=== PATIENT | female | born 1990 | race African-American/Black ===

== ENCOUNTER 2017-12-01 14:44 | Emergency (ER) | payer MEDICAID ==
[2017-12-01 15:47] VITALS: BP 110/65
--- NOTE | 2017-12-01 16:06 | ER Document Report ---
HPI - HPI Pain Level: 4 Notes: Patient is a 27-year-old female no significant past medical history presents to the ED complaining of nasal congestion/discharge, irritated throat, fevers, body aches, dry nonproductive cough 5-7 days. Patient states that overall her symptoms seem to be improving, but wanted checked out as multiple people in her household have a similar illness. Patient is otherwise eating and drinking without difficulties. She is ambulatory without any dyspnea on exertion or worsening symptoms. She is urinating normally and having normal bowel movements. Tylenol Motrin has been helping. Denies any current headache, current fever, neck pain, chest pain, palpitations, syncope, shortness of breath , wheeze, dyspnea, abdominal pain, nausea/vomiting/diarrhea, urinary retention, dysuria, hematuria, or rash. - ROS Systems Reviewed and Negative: Yes All other systems reviewed and negative Past Medical History - Social History Smoking Status: Never Smoker Family History: Reviewed & Not Pertinent Vertical Provider Document - CONSTITUTIONAL Agree With Documented VS: Yes Notes: PHYSICAL EXAMINATION: GENERAL: Well-appearing, well-nourished and in no acute distress. A&Ox4. Answers questions appropriately. Moves comfortably w/o notable distress HEAD: Atraumatic, normocephalic. EYES: Pupils equal round and reactive to light, extraocular movements intact, sclera anicteric, conjunctiva are normal. ENT: EAC clear b/l. TM's intact b/l without erythema, fluid, or perforation. Nares patent and with clear discharge. oropharynx mild erythema without exudates. no tonsilar hypertrophy without erythema or exudate. No palatine shift. Uvula midline. No tongue protrusion. No drooling, hoarseness, or airway compromise. Moist mucous membranes. No sinus tenderness. NECK: Normal range of motion, supple without lymphadenopathy. No rigidity/ meningismus. LUNGS: Breath sounds clear to auscultation bilaterally and equal. No wheezes rales or rhonchi. No retractions HEART: Regular rate and rhythm without murmurs, rubs, gallops. ABDOMEN: Soft, nontender, nondistended abdomen. No guarding, no rebound. No masses appreciated. Normal bowel sounds present. No CVA tenderness bilaterally. No hepatosplenomegaly. NEUROLOGICAL: Normal speech, normal gait. Normal sensory, motor exams PSYCH: Normal mood, normal affect. SKIN: Warm, Dry, normal turgor, no rashes or lesions noted. - INFECTION CONTROL TRAVEL OUTSIDE OF THE [place] IN LAST 30 DAYS: No - RESPIRATORY O2 Sat by Pulse Oximetry: 98 Course - Re-evaluation Re-evalutation: 12/01/17 16:05 Patient is an afebrile, well-hydrated, 27-year-old female who presents ED with acute URI, suspect viral. Vitals are stable. PE is otherwise unremarkable. No other labs or imaging warranted at this time based on H&P. Low suspicion for any meningitis, sepsis, peritonsillar/pharyngeal abscess, respiratory compromise, Riki's, severe dehydration, or other emergent systemic condition at this time. Patient is aware this condition can change from initial presentation and she needs to monitor symptoms closely. Conservative measures otherwise for symptoms. Recheck with your PCM in 3-5 days. Return to the ED with any worsening/concerning symptoms otherwise as reviewed in discharge. Patient is in agreement. - Vital Signs Vital signs: Temp Pulse Resp BP Pulse Ox 97.7 F 84 18 110/65 98 12/01/17 15:33 12/01/17 15:33 12/01/17 15:33 12/01/17 15:33 12/01/17 15:33 Discharge - Discharge Clinical Impression: Acute URI Condition: Stable Disposition: HOME, SELF-CARE Instructions: Upper Respiratory Illness ([facility]) Additional Instructions: Maintain adequate fluid intake Take meds as directed tylenol/ibuprofen as needed over the counter cold medication as needed for symptoms Humidified air may help Wash your hands regularly Wear a mask when coughing F/u: with your PCM in 3-5 days for a recheck Return to the ED with any fever, worsening pain, chest pain, palpitations, syncope, worsening VIEIRA, neck pain/stiffness, shortness of breath, wheezing, drooling, trouble swallowing/breathing, abdominal pain, n/v/d, rash, or worsening/concerning symptoms otherwise. Forms: Return to Work Referrals: [facility] [Provider Group] - Follow up as needed [facility] [Provider Group] - Follow up as needed
== END 2017-12-01 17:12 | disposition home or self-care (01) ==
LOC: ER 14:44
DX: J06.9 Acute upper respiratory infection, unspecified (principal); R09.81 Nasal congestion; R50.9 Fever, unspecified; M79.1 Myalgia; R05 Cough
CPT/HCPCS: 99283

== ENCOUNTER 2017-12-27 12:17 | Emergency (ER) | payer MEDICAID ==
--- NOTE | 2017-12-27 13:21 | ER Document Report ---
ED Extremity Problem, Lower - General Chief Complaint: Laceration Stated Complaint: LACERATION LEFT Time Seen by Provider: 12/27/17 12:56 Mode of Arrival: Ambulatory Information source: Patient Notes: 27-year-old female presented to ED for complaint of laceration to her left leg from broken glass on Wednesday. She states that the area is not closing up and is staying gap. She states she was not able to come to the emergency room for and she cut her leg but came today to see if he could get sutured. Patient was instructed that sutures could not be inserted this late after a laceration for a healing wound. TRAVEL OUTSIDE OF THE [place] IN LAST 30 DAYS: No - HPI Patient complains to provider of: Injury - Laceration on Wednesday, Pain Location: Leg Occurred: Other - Wednesday Where: Home, Outdoors Onset/Duration: Persistent Quality of pain: Sharp Severity: Mild Pain Level: 2 Context: Laceration - Left leg Recent injury: Yes Associated symptoms: Other - Laceration Exacerbated by: Movement, Walking Relieved by: Nothing - Related Data Allergies/Adverse Reactions: No Known Allergies Allergy (Verified 12/27/17 13:20) Past Medical History - General Information source: Patient - Social History Smoking Status: Never Smoker Cigarette use (# per day): No Chew tobacco use (# tins/day): No Smoking Education Provided: No Frequency of alcohol use: Social Drug Abuse: None Occupation: Computer Console Operator at [employer] with: Spouse/Significant other Family History: Reviewed & Not Pertinent Patient has suicidal ideation: No Patient has homicidal ideation: No - Past Medical History Cardiac Medical History: Reports: None Pulmonary Medical History: Reports: None EENT Medical History: Reports: None Neurological Medical History: Reports: None Endocrine Medical History: Reports: None Renal/ Medical History: Reports: None Malignancy Medical History: Reports: None GI Medical History: Reports: None Musculoskeltal Medical History: Reports None Skin Medical History: Reports None Psychiatric Medical History: Reports: None Traumatic Medical History: Reports: None Infectious Medical History: Reports: None Surgical Hx: Negative Past Surgical History: Reports: None - Immunizations Immunizations up to date: Yes Hx Diphtheria, Pertussis, Tetanus Vaccination: Yes - She states 2017 Review of Systems - Review of Systems Notes: Constitutional: [PRESENT: as per HPI. ABSENT: chills, fever(s), headache(s), weight gain, weight loss] Eyes: [ABSENT: visual disturbances] Ears: [ABSENT: hearing changes] Cardiovascular: [ABSENT: chest pain, dyspnea on exertion, edema, orthropnea, palpitations] Respiratory: [ABSENT: cough, hemoptysis] Gastrointestinal: [ABSENT: abdominal pain, constipation, diarrhea, hematemesis, hematochezia, nausea, vomiting] Genitourinary: [ABSENT: dysuria, hematuria] Musculoskeletal: [ABSENT: joint swelling] Integumentary: Laceration left lower leg Neurological: [ABSENT: abnormal gait, abnormal speech, confusion, dizziness, focal weakness, syncope] Psychiatric: [ABSENT: anxiety, depression, homicidal ideation, suicidal ideation ] Endocrine: [ABSENT: cold intolerance, heat intolerance, menstrual abnormalities , polydipsia, polyuria] Hematologic/Lymphatic: [ABSENT: easy bleeding, easy bruising, lymphadenopathy] Physical Exam - Vital signs Vitals: Temp Pulse Resp BP Pulse Ox 98.7 F 72 15 114/68 100 12/27/17 12:33 12/27/17 12:33 12/27/17 12:33 12/27/17 12:33 12/27/17 12:33 - Notes Notes: PHYSICAL EXAMINATION: GENERAL: Well-appearing, well-nourished and in no acute distress. HEAD: Atraumatic, normocephalic. EYES: Pupils equal round and reactive to light, extraocular movements intact, conjunctiva are normal. ENT: Nares patent, oropharynx clear without exudates. Moist mucous membranes. NECK: Normal range of motion, supple without lymphadenopathy LUNGS: Breath sounds clear to auscultation bilaterally and equal. No wheezes rales or rhonchi. HEART: Regular rate and rhythm without murmurs ABDOMEN: Soft, nontender, nondistended abdomen. No guarding, no rebound. No masses appreciated. Female : deferred Musculoskeletal: Normal range of motion, no pitting or edema. No cyanosis. NEUROLOGICAL: Cranial nerves grossly intact. Normal speech, normal gait. Normal sensory, motor exams PSYCH: Normal mood, normal affect. SKIN: Warm, Dry, normal turgor, no rashes or lesions noted. 3 cm laceration to the left lower leg since Wednesday. Granulation has started no redness no signs or symptoms of infection. Course - Vital Signs Vital signs: Temp Pulse Resp BP Pulse Ox 98.2 F 77 15 108/69 100 03/05/18 13:22 12/27/17 13:22 12/27/17 12:33 12/27/17 13:22 12/27/17 13:22 Procedures - Laceration/Wound Repair Left Lower Leg Time completed: 13:20 Wound length (cm): 3 Wound's Depth, Shape: Linear Laceration pre-procedure: Sterile PPE donned, Shur-Clens applied Anesthetic type: Other - None Volume Anesthetic (mLs): 0 Wound explored: Clean Irrigated w/ Saline (mLs): 50 Wound Repaired With: Steri-strips Post-procedure NV exam normal: Yes Complications: No Notes: 12/27/17 20:46 Patient waited from Wednesday to Wednesday after laceration occurred no longer able to suture laceration laceration was closed some with Steri-Strips. Patient was given instructions on care Steri-Strips. Discharge - Discharge Clinical Impression: Laceration of left lower leg Qualifiers: Encounter type: initial encounter Qualified Code(s): S81.812A - Laceration without foreign body, left lower leg, initial encounter Condition: Stable Disposition: HOME, SELF-CARE Additional Instructions: NON-SUTURED LACERATION: Normally this laceration would have been sutured but because it was more than 12 hours old and in fact it was over 2 days old I was not able to suture it. There is no signs or symptoms of any infection. Continue cleaning as you have been. Your laceration did not require suturing. Some lacerations cannot be sutured because of increased infection risk, while others simply don't need stitches because they are shallow or very short. Your injury should be protected while it heals. Usually complete healing takes 10 to 14 days. Keep the dressing clean and dry, and change it every day. If you notice increasing pain, redness, swelling, drainage, or tender lumps in the armpit or groin above the injury, infection may be present. You should call the doctor at once. SOAP CLEANSING: Gently wash the wound daily using a mild soap (like Ivory, Phisoderm, Neutrogena). Use warm water, rubbing gently until all debris, ooze, and crusting have been washed from the wound. Allow to dry briefly (about 10 minutes) after cleaning. Repeat this cleansing at least three times a day for the first two days and then once or twice a day. Care of Steri-Strip Closure Your cut has been closed up with a special surgical tape. For this type of cut, it can replace stitches. You must protect the wound just as you would with stitches, however. For the first few days, keep the wound area completely dry. This also means you should avoid activity which makes you sweat. Do not move the area if motion stretches or wrinkles the strips. Don't allow the area to be bumped -- if bleeding occurs, the blood can make the strips loosen. The strips are somewhat waterproof. After a few days, the physician may allow you to shower. Be sure to ask if it's OK. Do not remove the tape until it peels off by itself. At that time, the wound should be healed. FOLLOW-UP CARE: Please return in __3___ days for an infection check and dressing change. If you have been referred to another physician for follow-up care, call that physicians office for an appointment as you were instructed. If you experience a significant change in your laceration, or if you are concerned there may be an infection (swelling, redness, drainage, increasing tenderness, red streaks, tender lumps in the armpit or groin above the laceration, or fever) , return to the Emergency Department immediately re-evaluation. Referrals: LA CHAUDHARI MD [Primary Care Provider] - Follow up as needed
[2017-12-27 13:22] VITALS: BP 108/69
== END 2017-12-27 13:29 | disposition home or self-care (01) ==
LOC: ER 12:17
DX: S81.812A Laceration without foreign body, left lower leg, initial encounter (principal); W25.XXXA Contact with sharp glass, initial encounter
CPT/HCPCS: 99282

== ENCOUNTER 2018-04-10 22:54 | Emergency (ER) | payer SELFPAY ==
[2018-04-11] MEDS ORDERED: LIDOCAINE 5% (700 MG) TRANSDERMAL ADH..PATCH TP ONE (01:05)
[2018-04-11] MEDS ORDERED: ACETAMINOPHEN 325 MG TABLET PO ONE (01:05)
[2018-04-11] MEDS ORDERED: CYCLOBENZAPRINE HCL 10 MG TABLET PO ONE (01:05)
[2018-04-11] MEDS ORDERED: KETOROLAC TROMETHAMINE 60 MG/2 ML SDV IM ONE (01:05)
--- NOTE | 2018-04-11 01:10 | ER Document Report ---
ED General - General Chief Complaint: Neck Problem Stated Complaint: NECK/SHOULDER PAIN Time Seen by Provider: 04/10/18 23:34 Notes: Patient is a 27-year-old female without past medical history presents with several hours of left-sided neck and trapezius pain. Patient states that she had a headache when lying down in her bed for some time when she sat up she noticed that the left side of her neck was quite painful. She states that it progressed to involve her left trapezius, left periscapular region as well as left shoulder. She describes it as a severe, throbbing, spasming pain. She reports any movement of her neck or shoulder worsens the pain. She denies a history of similar symptoms in the past. She denies any chest pain, shortness of breath, nausea, vomiting or diaphoresis. She has not training to improve the pain. She has not seen her general doctor regarding today's concerns. No known injury to the affected area. She denies any associated focal weakness or numbness. No loss of rubber and pounder strength in the left hand. TRAVEL OUTSIDE OF THE [place] IN LAST 30 DAYS: No - Related Data Allergies/Adverse Reactions: No Known Allergies Allergy (Verified 12/27/17 13:20) Past Medical History - General Information source: Patient - Social History Smoking Status: Never Smoker Frequency of alcohol use: None Drug Abuse: None Lives with: Spouse/Significant other Family History: Reviewed & Not Pertinent Patient has suicidal ideation: No Patient has homicidal ideation: No Renal/ Medical History: Denies: Hx Peritoneal Dialysis - Immunizations Immunizations up to date: Yes Hx Diphtheria, Pertussis, Tetanus Vaccination: Yes - She states 2017 Review of Systems - Review of Systems Notes: Constitutional: Negative for fever. HENT: Negative for sore throat. Eyes: Negative for visual changes. Cardiovascular: Negative for chest pain. Respiratory: Negative for shortness of breath. Gastrointestinal: Negative for abdominal pain, vomiting or diarrhea. Genitourinary: Negative for dysuria. Musculoskeletal: Positive for left neck pain and left shoulder pain. Skin: Negative for rash. Neurological: Negative for headaches, weakness or numbness. 10 point ROS negative except as marked above and in HPI. Physical Exam - Vital signs Vitals: Temp Pulse Resp BP Pulse Ox 98.1 F 75 18 116/74 100 04/10/18 23:26 04/10/18 23:26 04/10/18 23:26 04/10/18 23:26 04/10/18 23:26 Interpretation: Normal Notes: PHYSICAL EXAMINATION: GENERAL: Well-appearing, well-nourished and in no acute distress. HEAD: Atraumatic, normocephalic. EYES: Pupils equal round and reactive to light, extraocular movements intact, sclera anicteric, conjunctiva are normal. ENT: nares patent, oropharynx clear without exudates. Moist mucous membranes. NECK: Palpable spasm of the left sternocleidomastoid muscle as well as left trapezius. Limited range of motion of the neck to approximately 45 maximally on the left, 90 on the right. LUNGS: Breath sounds clear to auscultation bilaterally and equal. No wheezes rales or rhonchi. HEART: Regular rate and rhythm without murmurs ABDOMEN: Soft, nontender, normoactive bowel sounds. No guarding, no rebound. No masses appreciated. EXTREMITIES: Normal range of motion, no pitting or edema. No cyanosis. NEUROLOGICAL: No focal neurological deficits. Moves all extremities spontaneously and on command. PSYCH: Normal mood, normal affect. SKIN: Warm, Dry, normal turgor, no rashes or lesions noted. Course - Re-evaluation Re-evalutation: 04/11/18 01:06 Patient presents with a musculoskeletal strain of her left sternomastoid and trapezius point tenderness to palpation as well as pain with movement of the neck. She has no midline cervical spine tenderness and has not had any traumatic event. No indication for CT of cervical spine. She has no focal neurologic deficits. RMU motor and sensory distribution is intact bilaterally. She does not have any chest pain or shortness of breath to suggest a cardiac etiology and has no risk factors for this diagnosis. She has had improvement of her pain after receiving Toradol and a Lidoderm patch. At this time will discharge with return precautions and follow-up recommendations. Verbal discharge instructions given a the bedside and opportunity for questions given. Medication warnings reviewed. Patient is in agreement with this plan and has verbalized understanding of return precautions and the need for primary care follow-up in the next 24-72 hours. - Vital Signs Vital signs: Temp Pulse Resp BP Pulse Ox 98.1 F 64 16 118/84 100 04/11/18 01:28 04/11/18 01:28 04/11/18 01:28 04/11/18 01:28 04/11/18 01:28 Discharge - Discharge Clinical Impression: Strain of neck muscle Qualifiers: Encounter type: initial encounter Qualified Code(s): S16.1XXA - Strain of muscle, fascia and tendon at neck level, initial encounter Shoulder pain Qualifiers: Chronicity: acute Laterality: left Qualified Code(s): M25.512 - Pain in left shoulder Condition: Good Disposition: HOME, SELF-CARE Additional Instructions: You have a muscle strain of your neck and shoulder muscles. Take the naproxen and Flexeril as prescribed. Continue to apply ice to the area is much your able. Please follow-up with your primary care physician if you do not have improving your symptoms in the next 1-2 weeks. Please return immediately if you develop weakness, numbness, spreading redness from the area, or any other symptoms that are concerning to you. Prescriptions: Cyclobenzaprine HCl [Flexeril 10 mg Tablet] 10 mg PO QHS PRN #15 tablet PRN Reason: Naproxen 500 mg PO BID #60 tablet Forms: Return to Work
[2018-04-11 01:30] VITALS: BP 118/84
== END 2018-04-11 01:28 | disposition home or self-care (01) ==
LOC: ER 22:54
DX: S16.1XXA Strain of muscle, fascia and tendon at neck level, initial encounter (principal); M25.512 Pain in left shoulder; R51 Headache; X58.XXXA Exposure to other specified factors, initial encounter
CPT/HCPCS: 99283; J1885

== ENCOUNTER 2019-07-25 12:14 | Emergency (ER) | payer SELFPAY ==
--- NOTE | 2019-07-25 12:51 | ER Document Report ---
ED Medical Screen (RME) - General Chief Complaint: Abdominal Pain Stated Complaint: STOMACH PAIN LEFT SIDE Time Seen by Provider: 07/25/19 12:46 Mode of Arrival: Ambulatory Information source: Patient Notes: 28-year-old female presented to ED for left abdomen/pelvic/flank pain. He is alert oriented respirations regular and unlabored speaking in full sentences. He states he does smoke 1 cigarette occasionally drinks does not do any drugs works at [employer] does have a history of anemia has had 3 C-sections and lives alone with her kids. She states her last menstrual period was July 05. I have greeted and performed a rapid initial assessment of this patient. A comprehensive ED assessment and evaluation of the patient, analysis of test results and completion of medical decision making process will be conducted by an additional ED providers. TRAVEL OUTSIDE OF THE [place] IN LAST 30 DAYS: No - Related Data Allergies/Adverse Reactions: No Known Allergies Allergy (Verified 07/25/19 12:46) Past Medical History - Social History Chew tobacco use (# tins/day): No Renal/ Medical History: Denies: Hx Peritoneal Dialysis - Immunizations Immunizations up to date: Yes Hx Diphtheria, Pertussis, Tetanus Vaccination: Yes - She states 2017 Physical Exam - Vital signs Vitals: Temp Pulse Resp BP Pulse Ox 98.1 F 71 18 113/70 100 07/25/19 12:35 07/25/19 12:35 07/25/19 12:35 07/25/19 12:35 07/25/19 12:35 Course - Vital Signs Vital signs: Temp Pulse Resp BP Pulse Ox 98.1 F 71 18 113/70 100 07/25/19 12:35 07/25/19 12:35 07/25/19 12:35 07/25/19 12:35 07/25/19 12:35
[2019-07-25 13:30] LABS: ABSOLUTE EOSINOPHILS # (AUTO) 0.2 10^3/uL (0.0-0.6); ABSOLUTE LYMPHOCYTES (AUTO) 2.3 10^3/uL (0.5-4.7); ABSOLUTE MONOCYTES (AUTO) 0.4 10^3/uL (0.1-1.4); BASOPHILS % (AUTO) 0.9 % (0-2); HEMATOCRIT 34.1 % (36.0-47.0); HEMOGLOBIN 10.8 g/dL (12.0-15.5); LYMPHOCYTES % (AUTO) 46.3 % (13-45); MEAN CORPUSCULAR HEMOGLOBIN 24.3 pg (27.0-33.4); MEAN CORPUSCULAR HGB CONC 31.6 g/dL (32.0-36.0); MEAN CORPUSCULAR VOLUME 77 fl (80-97); MONOCYTES % (AUTO) 8.1 % (3-13); PLATELET COUNT 313 10^3/uL (150-450); RED BLOOD COUNT 4.43 10^6/uL (3.72-5.28); RED CELL DISTRIBUTION WIDTH 16.1 % (11.5-14.0); SEGMENTED NEUTROPHILS % (AUTO) 40.7 % (42-78); TOTAL CELLS COUNTED % (AUTO) 100 %; WHITE BLOOD COUNT 4.9 10^3/uL (4.0-10.5)
[2019-07-25 13:35] LABS: APPEARANCE,URINE CLEAR; BILIRUBIN,URINE NEGATIVE (NEGATIVE); COLOR,URINE STRAW; GLUCOSE, URINE NEGATIVE (NEGATIVE); KETONES,URINE NEGATIVE (NEGATIVE); LEUKOCYTE ESTERASE,URINE NEGATIVE (NEGATIVE); NITRITE,URINE NEGATIVE (NEGATIVE); PROTEIN,URINE NEGATIVE (NEGATIVE); URINE SPECIFIC GRAVITY 1.005; UROBILINOGEN,URINE NEGATIVE mg/dL (<2.0)
[2019-07-25 13:54] LABS: ALBUMIN 4.1 g/dL (3.5-5.0); ALKALINE PHOSPHATASE 44 U/L (38-126); ANION GAP 7 (5-19); ASPARTATE AMINO TRANSFERASE 18 U/L (14-36); BILIRUBIN,DIRECT 0.1 mg/dL (0.0-0.4); BILIRUBIN,TOTAL 0.3 mg/dL (0.2-1.3); BLOOD UREA NITROGEN 8 mg/dL (7-20); CALCIUM 9.5 mg/dL (8.4-10.2); CARBON DIOXIDE 27 mmol/L (22-30); CHLORIDE 104 mmol/L (98-107); GLUCOSE 84 mg/dL (75-110); POTASSIUM 4.3 mmol/L (3.6-5.0); TOTAL PROTEIN 7.4 g/dL (6.3-8.2)
--- NOTE | 2019-07-25 15:25 | ER Document Report ---
ED General - General Chief Complaint: Abdominal Pain Stated Complaint: STOMACH PAIN LEFT SIDE Time Seen by Provider: 07/25/19 12:46 Mode of Arrival: Ambulatory Notes: Patient is a 28-year-old female who presents emergency department with a chief complaint of left lower abdominal pain. She states that she has had a normal for the past 2 weeks. The pain comes and goes. Patient states that she has had some vaginal discharge. Her last menstrual cycle was 07/05/2019. She states that she has not had sex in the past 2 months. Patient does have a history of anemia, 3 C-sections, and a tubal ligation. TRAVEL OUTSIDE OF THE [place] IN LAST 30 DAYS: No - Related Data Allergies/Adverse Reactions: No Known Allergies Allergy (Verified 07/25/19 12:46) Past Medical History - General Information source: Patient - Social History Smoking Status: Current Some Day Smoker Chew tobacco use (# tins/day): No Family History: Reviewed & Not Pertinent Patient has suicidal ideation: No Patient has homicidal ideation: No Renal/ Medical History: Denies: Hx Peritoneal Dialysis - Immunizations Immunizations up to date: Yes Hx Diphtheria, Pertussis, Tetanus Vaccination: Yes - She states 2017 Review of Systems - Review of Systems Notes: REVIEW OF SYSTEMS: CONSTITUTIONAL : Denies recent illness. Denies recent unintentional weight loss. Denies fever, chills, or sweats. EENT: Denies eye, ear, throat, or mouth pain, discharge, or symptoms. Denies nasal or sinus congestion. CARDIOVASCULAR: Denies chest pain. RESPIRATORY: Denies shortness of breath, cough, congestion, difficulty breath ing, or wheezing. GASTROINTESTINAL: See HPI. GENITOURINARY: Denies difficulty urinating, burning, blood in urine, urgency or frequency. FEMALE GENITOURINARY: See HPI. MUSCULOSKELETAL: Denies neck and back pain. Denies joint pain or swelling. SKIN: Denies rash, itchiness, or lesions HEMATOLOGIC : Denies easy bruising or bleeding. LYMPHATIC: Denies swollen, painful, enlarged glands. NEUROLOGICAL: Denies no numbness or tingling denies weakness. Denies headache. Denies altered mental status. Denies alteration in speech. PSYCHIATRIC: Denies stress, anxiety, alteration in sleep patterns, or depression. All other systems reviewed and negative. Physical Exam - Vital signs Vitals: Temp Pulse Resp BP Pulse Ox 98.1 F 71 18 113/70 100 07/25/19 12:35 07/25/19 12:35 07/25/19 12:35 07/25/19 12:35 07/25/19 12:35 - Notes Notes: PHYSICAL EXAMINATION: GENERAL: Appears well, healthy, well-nourished, no acute distress. HEAD: Normocephalic, atraumatic. EYES: PERRL, conjunctiva normal, all extraocular movements intact, sclera nonicteric ENT: Moist mucous membranes. NECK: Supple, no noticeable swelling, redness, rash. Normal range of motion. LUNGS: Equal breath sounds bilaterally and clear to auscultation. No wheezes rales or rhonchi. CARDIOVASCULAR: S1-S2, regular rate, regular rhythm. Radial pulses 2+, normal. ABDOMEN: Normoactive bowel sounds. Soft, nontender, no guarding, no rebound tenderness, and no masses palpated. EXTREMITIES: Normal strength and range of motion, no pitting or edema. No cyanosis. NEUROLOGICAL: Moves all extremities upon command. Strength 5/5 in all extremities. PSYCH: Normal mood, normal affect. SKIN: Warm, dry. No rash, lesions, ulcerations noted. Normal skin turgor. CLEANER FURNITURE: White discharge noted. Cervical motion tenderness noted. Left adnexal tenderness noted. Course - Re-evaluation Re-evalutation: 07/25/19 15:45 Pelvic exam done with JASMIN Delgado at bedside. Patient did have some cervical motion tenderness. Patient's transvaginal ultrasound shows that she has good blood flow to both ovaries. No ovarian torsion noted. Patient does have a trace amount of free fluid in the cul-de-sac, which is consistent with the dis charge found on her pelvic exam. Renal ultrasound is unremarkable. No hydronephrosis or renal stone noted. 07/25/19 16:15 Patient has 4+ bacteria and 4+ epithelial cells noted on her wet mount. Patient has decided to be empirically treated with azithromycin and Rocephin for gonorrhea and Chlamydia coverage. Her urinalysis is unremarkable. Chemistries are normal and her hCG is negative. Patient has some anemia with a hemoglobin of 10.8, but she states that she is chronically anemic. Patient also will also be treated for pelvic inflammatory disease, with Flagyl and doxycycline. Follow-up precautions were given. Verbal discharge instructions were given to the patient. They verbalized understanding. They are stable for discharge. - Vital Signs Vital signs: Temp Pulse Resp BP Pulse Ox 97.9 F 64 16 111/78 100 07/25/19 16:51 07/25/19 16:51 07/25/19 16:51 07/25/19 16:51 07/25/19 16:51 - Laboratory Result Diagrams: 07/25/19 13:15 07/25/19 13:15 Laboratory results interpreted by me: 07/25/19 13:15 Hgb 10.8 L Hct 34.1 L MCV 77 L MCH 24.3 L MCHC 31.6 L RDW 16.1 H Lymph % (Auto) 46.3 H Seg Neutrophils % 40.7 L Discharge - Discharge Clinical Impression: Bacterial vaginosis, Pelvic inflammatory disease Abdominal pain Qualifiers: Abdominal location: left lower quadrant Qualified Code(s): R10.32 - Left lower quadrant pain Condition: Stable Disposition: HOME, SELF-CARE Additional Instructions: You were seen today in the emergency department for abdominal pain. You have bacterial vaginosis and pelvic inflammatory disease. You are being treated for both. Your ultrasounds were normal. Please follow-up with [facility] in regards to this visit. Please take all your antibiotics as prescribed. If your symptoms get worse, you develop fever greater than 101.4 d egrees Fahrenheit, or have worsening jonel pain in the next few days, please return to the emergency department. Prescriptions: Doxycycline Hyclate 100 mg PO BID #28 capsule Metronidazole [Flagyl 500 mg Tablet] 500 mg PO Q6H #28 tablet
--- NOTE | 2019-07-25 15:35 | RADIOLOGY REPORT (SQ) ---
EXAM DESCRIPTION: U/S NON-OB PELVIS TV W/O DOP COMPLETED DATE/TIME: 07/25/2019 3:23 pm REASON FOR STUDY: LLQ/flank/pelvic pain COMPARISON: None. TECHNIQUE: Dynamic and static grayscale images acquired of the pelvis via transvaginal approach and recorded on PACS. Additional selected color Doppler and spectral images recorded. LIMITATIONS: None. FINDINGS: UTERUS: The uterus measures 9.4 x 4.7 x 4.6 cm. The myometrium is homogeneous ; there is no mass. ENDOMETRIAL STRIPE: The endometrial stripe measures up to 17 mm in thickness. CERVIX: The cervix measures 2.7 cm in length. RIGHT OVARY AND DOPPLER: The right ovary measures 3.2 x 3.7 x 1.9 cm. There is no adnexal mass. LEFT OVARY AND DOPPLER: The left ovary measures 2.8 x 2 x 2.1 cm. There is no adnexal mass. FREE FLUID: There is a trace amount of free fluid in the cul-de-sac. OTHER: No other finding. IMPRESSION: 1. Normal uterus and endometrium. 2. Normal appearance of the ovaries. There is no adnexal mass. 3. Trace amount of physiologic free fluid in the cul-de-sac. TECHNICAL DOCUMENTATION: JOB ID: [id number] [employer]- All Rights Reserved Rev-03/11 Reading location - IP/workstation name: [email or web address]
--- NOTE | 2019-07-25 15:37 | RADIOLOGY REPORT (SQ) ---
EXAM DESCRIPTION: U/S RETROPERITON (RENAL/AORTA) COMPLETED DATE/TIME: 07/25/2019 3:23 pm REASON FOR STUDY: LLQ/flank/pelvic pain COMPARISON: None. TECHNIQUE: Dynamic and static grayscale images acquired of the kidneys and bladder and recorded on P ACS. Additional selected color Doppler and spectral images recorded. LIMITATIONS: None. FINDINGS: RIGHT KIDNEY: The right kidney measures 8.8 x 4.4 x 3.6 cm. The echogenicity of the kidne y is normal and there is no hydronephrosis, mass or calcification. LEFT KIDNEY: The left kidney measures 9.2 x 5.1 x 5 cm. The echogenicity of the kidney is normal an d there is no hydronephrosis, mass or calcification. BLADDER: No masses. OTHER FINDINGS: No other finding. IMPRESSION: No hydronephrosis. TECHNICAL DOCUMENTATION: JOB ID: [id number] [employer]- All Rights Reserved Reading location - IP/workstation name: [email or web address]
[2019-07-25 15:59] LABS: BACTERIA (WET MOUNT) 4+ BACTERIA SEEN; EPITHELIALS (WET MOUNT) 4+ EPITHELIALS SEEN; RBCS (WET MOUNT) NO RBCS SEEN; T.VAGINALIS (WET MOUNT) NO TRICHOMONAS SEEN; WBCS (WET MOUNT) RARE WBCS SEEN; YEAST (WET MOUNT) NO YEAST SEEN
[2019-07-25] MEDS ORDERED: LIDOCAINE 1% INJ-PF (10 MG/ML) 30 ML SDV INJ ONE (16:17)
[2019-07-25] MEDS ORDERED: CEFTRIAXONE INJ 250 MG VIAL IM ONE (16:17)
[2019-07-25] MEDS ORDERED: AZITHROMYCIN 250 MG TABLET PO ONE (16:17)
[2019-07-25 16:52] VITALS: BP 111/78
[2019-07-25 17:24] LABS: CHLAM PCR NOT DETECTED (NOT DETECT)
== END 2019-07-25 16:52 | disposition home or self-care (01) ==
LOC: ER 12:14
DX: N76.0 Acute vaginitis (principal); B96.89 Other specified bacterial agents as the cause of diseases classified elsewhere; N73.9 Female pelvic inflammatory disease, unspecified; R10.32 Left lower quadrant pain; F17.200 Nicotine dependence, unspecified, uncomplicated; Z98.51 Tubal ligation status
CPT/HCPCS: 36415; 87210; 84703; 85025; 80053; 81001; 87491; 87591; 76770; 76830; J3490; J0696

== ENCOUNTER 2019-09-13 21:31 | Emergency (ER) | payer SELFPAY ==
[2019-09-13] MEDS ORDERED: PSEUDOEPHEDRINE HCL 30 MG TABLET PO ONE (23:00)
[2019-09-13] MEDS ORDERED: BUTALB/ACETAMINOPHEN/CAFFEINE 1 TAB EACH PO ONE (23:00)
[2019-09-13] MEDS ORDERED: IPRATROPIUM/ALBUTEROL 0.5-2.5 MG/3 ML AMPUL NEB ONE (23:00)
--- NOTE | 2019-09-13 23:01 | ER Document Report ---
ED Medical Screen (RME) - General Chief Complaint: Cough Stated Complaint: BODY ACHES,COUGH,CONGESTION Time Seen by Provider: 09/13/19 22:59 Mode of Arrival: Ambulatory Information source: Patient Notes: Patient presents complaining of chills, cough and congestion for the past 3 days. Patient reports cough sore throat and headache. Patient also complains of diarrhea. No nausea or vomiting. I have greeted and performed a rapid initial assessment of this patient. A comprehensive ED assessment and evaluation of the patient, analysis of test results and completion of the medical decision making process will be conducted by additional ED providers. TRAVEL OUTSIDE OF THE [place] IN LAST 30 DAYS: No - Related Data Allergies/Adverse Reactions: No Known Allergies Allergy (Verified 07/25/19 12:46) Past Medical History Renal/ Medical History: Denies: Hx Peritoneal Dialysis - Immunizations Immunizations up to date: Yes Hx Diphtheria, Pertussis, Tetanus Vaccination: Yes - She states 2017 Physical Exam - Vital signs Vitals: Temp Pulse Resp BP Pulse Ox 97.6 F 84 18 117/69 99 09/13/19 21:40 09/13/19 21:40 09/13/19 21:40 09/13/19 21:40 09/13/19 21:40 - Respiratory Respiratory status: No respiratory distress Breath sounds: Nonproductive cough, Rhonchi Course - Vital Signs Vital signs: Temp Pulse Resp BP Pulse Ox 97.6 F 84 18 117/69 99 09/13/19 21:40 09/13/19 21:40 09/13/19 21:40 09/13/19 21:40 09/13/19 21:40
--- NOTE | 2019-09-13 23:31 | RADIOLOGY REPORT (SQ) ---
EXAM DESCRIPTION: XR CHEST 2 VIEWS COMPLETED DATE/TME: 09/13/2019 23:00 CLINICAL HISTORY: 28 years Female, cough COMPARISON: None. NUMBER OF VIEWS/TECHNIQUE: 2, Frontal, Lateral FINDINGS: Adequate lung volume, clear parenchyma, normal cardiac silhouette, and intact bony thorax. IMPRESSION: No acute cardiopulmonary findings.
--- NOTE | 2019-09-14 00:52 | ER Document Report ---
HPI - HPI Time Seen by Provider: 09/13/19 22:59 Pain Level: 4 Context: Patient is a 28-year-old female that comes to the emergency department for chief complaint of worsening congestion, cough, sore throat for the past 3 days. She reports some chills and body aches. She states she might have been exposed to an illness at work. She denies smoking other than occasional marijuana, she denies any daily medications, she denies any diagnosed medical problems. LMP within the past month. - REPRODUCTIVE Reproductive: DENIES: : Past Medical History - General Information source: Patient - Social History Smoking Status: Never Smoker Chew tobacco use (# tins/day): No Frequency of alcohol use: Rare Drug Abuse: Marijuana Family History: Reviewed & Not Pertinent Patient has suicidal ideation: No Patient has homicidal ideation: No Renal/ Medical History: Denies: Hx Peritoneal Dialysis - Immunizations Immunizations up to date: Yes Hx Diphtheria, Pertussis, Tetanus Vaccination: Yes - She states 2017 Vertical Provider Document - INFECTION CONTROL TRAVEL OUTSIDE OF THE [place] IN LAST 30 DAYS: No - HEENT HEENT: Atraumatic, Normocephalic, PERRLA. negative: Conjuctival Injection, Normal ENT Exam - Very congested nasal sinuses with swollen turbinates. Nontender sinuses however. Some postnasal drip on oropharyngeal exam but otherwise unremarkable oropharyngeal exam. Unremarkable ears, unremarkable ENT exam otherwise - NECK Neck: Normal Inspection. negative: Lymphadenopathy-Left, Lymphadenopathy-Right - RESPIRATORY Respiratory: Breath Sounds Normal, Other - Frequent congested cough but no tachypnea, labored breathing, or overt wheezes - CARDIOVASCULAR Cardiovascular: Regular Rate, Regular Rhythm - GI/ABDOMEN Gastrointestinal: Abdomen Soft, Abdomen Non-Tender - BACK Back: Normal Inspection - MUSCULOSKELETAL/EXTREMETIES Musculoskeletal/Extremeties: MAEW, FROM, Non-Tender - NEURO Level of Consciousness: Awake, Alert, Appropriate Motor/Sensory: No Motor Deficit, No Sensory Deficit Course - Re-evaluation Re-evalutation: I did review strep and chest x-ray from triage, both are negative. Patient's evaluation is consistent with bronchitis in the setting of smoking. Patient is nontoxic in no concerning vital signs. Patient was provided with prednisone, symptomatic treatment, work-release. Discussed follow-up and return precautions. Patient states appreciation and agreement. Stable time of discharge. - Vital Signs Vital signs: Temp Pulse Resp BP Pulse Ox 97.6 F 84 18 117/69 99 09/13/19 21:40 09/13/19 21:40 09/13/19 21:40 09/13/19 21:40 09/13/19 21:40 Discharge - Discharge Clinical Impression: Wheezing, Cough Upper respiratory infection Qualifiers: URI type: unspecified URI Qualified Code(s): J06.9 - Acute upper respiratory infection, unspecified Condition: Stable Disposition: HOME, SELF-CARE Additional Instructions: Your evaluation indicates a viral upper respiratory infection and bronchitis. Take the steroids (prednisone) as prescribed, take the Tessalon if needed for cough, use the prescribed inhaler. I also recommend the nasal spray, antihistamine such as diphenhydramine at night, and Tylenol or ibuprofen for body aches and sore throat. Drink plenty fluids and rest. Symptoms should gradually resolve. Follow-up with primary care. Return if you worsen including spiking fevers, difficulty breathing, or any other concerning or worsening symptoms. Prescriptions: Benzonatate [Tessalon Perle 100 mg Capsule] 100 mg PO Q8HP PRN #20 cap PRN Reason: Prednisone [Deltasone 20 mg Tablet] 2 tab PO DAILY 5 Days #10 tablet Fluticasone Propionate [Flonase Nasal [place] 50 Mcg/[place] 16 gm] 2 sprays NASL Q12 #1 inhaler Forms: Return to Work
[2019-09-14 01:36] VITALS: BP 113/77
[2019-09-14] MEDS ORDERED: ALBUTEROL SULFATE HFA (90 MCG/PUFF) 8 GM MDI (1 MDI/ER DISP) IH ONE (01:48)
== END 2019-09-14 02:04 | disposition home or self-care (01) ==
LOC: ER 21:31
DX: J06.9 Acute upper respiratory infection, unspecified (principal); R06.2 Wheezing; R68.89 Other general symptoms and signs; M79.10 Myalgia, unspecified site
CPT/HCPCS: 94640; 99283; 87070; 87880; 71046; J3490 ×2; J7620

== ENCOUNTER 2020-08-24 07:50 | Emergency (ER) | payer SELFPAY ==
--- NOTE | 2020-08-24 08:08 | ER Document Report ---
ED General - General Chief Complaint: Abdominal Pain Stated Complaint: MUSCLE/ABDOMINAL PAIN Time Seen by Provider: 08/24/20 08:02 Primary Care Provider: REYNA GUARDADO MD [ACTIVE STAFF] - Follow up as needed KULWINDER MARIO MD [ACTIVE STAFF] - Follow up as needed DEB SILVER MD [COMMUNITY BASED STAFF] - Follow up as needed TRAVEL OUTSIDE OF THE [place] IN LAST 30 DAYS: No - HPI Notes: 29-year-old female presents to emergency room with complaints of left arm pain and chest pain that started at 4 AM. Reports pain is aching. 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 Patient is also reporting epigastric abdominal pain that is been off and on for the last couple of days. Reports her last bowel movement was yesterday, reports loose stool. Denies any nausea vomiting, shortness of breath, fevers chills. Patient states when she pushes on her chest she is able to reproduce the pain. Denies any radiation of the pain to her arm, neck or back. Denies any cardiac history. Reports that she does smoke 3 cigarettes a day, unknown if mother or father has any cardiac history. Has not tried any [id number] medications for this issues. Last menstrual cycle was August 08, 2020. Denies any vaginal discharge, vaginal bleeding. - Related Data Allergies/Adverse Reactions: No Known Allergies Allergy (Verified 08/24/20 08:15) Past Medical History - General Information source: Patient - Social History Smoking Status: Current Every Day Smoker Family History: Reviewed & Not Pertinent Renal/ Medical History: Denies: Hx Peritoneal Dialysis - Immunizations Immunizations up to date: Yes Hx Diphtheria, Pertussis, Tetanus Vaccination: Yes - She states 2017 Review of Systems - Review of Systems Constitutional: No symptoms reported EENT: No symptoms reported Cardiovascular: See HPI Respiratory: See HPI Gastrointestinal: No symptoms reported Genitourinary: No symptoms reported Female Genitourinary: No symptoms reported Musculoskeletal: See HPI Skin: No symptoms reported Hematologic/Lymphatic: No symptoms reported Neurological/Psychological: No symptoms reported Physical Exam - Vital signs Vitals: Temp Pulse Resp BP Pulse Ox 98.2 F 71 18 122/73 100 08/24/20 07:55 08/24/20 07:55 08/24/20 07:55 08/24/20 07:55 08/24/20 07:55 - Notes Notes: MEDICATIONS: I agree with the patient medications as charted by the RN. ALLERGIES: I agree with the allergies as charted by the RN. PAST MEDICAL HISTORY/PAST SURGICAL HISTORY: Reviewed and agree as charted by RN. SOCIAL HISTORY: Reviewed and agree as charted by RN. FAMILY HISTORY: No significant familial comorbid conditions directly related to patient complaint EXAM: Reviewed vital signs as charted by RN. PHYSICAL EXAMINATION: reviewed vital signs by RN GENERAL: Well-appearing, well-nourished and in no acute distress. HEAD: Atraumatic, normocephalic. EYES: Pupils equal round and reactive to light, extraocular movements intact, conjunctiva are normal. ENT: Nares patent, oropharynx clear without exudates. Moist mucous membranes. NECK: Normal range of motion, supple without lymphadenopathy LUNGS: Breath sounds clear to auscultation bilaterally and equal. No wheezes rales or rhonchi. HEART: Regular rate and rhythm without murmurs. able to reproduce chest pain on palpation ABDOMEN: Soft, nontender, nondistended abdomen. No guarding, no rebound. No masses appreciated. Female : deferred Musculoskeletal: Normal range of motion, no pitting or edema. No cyanosis. NEUROLOGICAL: Cranial nerves grossly intact. Normal speech, normal gait. Normal sensory, motor exams PSYCH: Normal mood, normal affect. SKIN: Warm, Dry, normal turgor, no rashes or lesions noted. Course - Re-evaluation Re-evalutation: 08/24/20 14:38 Afebrile vital stable no distress. Nurses notes reviewed. CBC negative for leukocytosis or anemia, CMP negative for hepatic or renal dysfunction, no electrolyte disturbances. Urinalysis unremarkable. Since patient is complaining of epigastric abdominal pain and substernal chest pain. CT abdomen pelvis with IV and oral contrast unremarkable. Lipase normal. Patient states that her chest pain started at 4 AM this morning. Will obtain 3 - troponins and sent home with referral for breaker unit assembler. Patient's EKG negative for ST segment elevation, no STEMI. 0.9 to 1.7% of adverse cardiac event. In the heart score study these patients were discharged. Patient is advised to follow-up with a breaker unit assembler and primary care provider. Discussed the patient this is likely musculoskeletal, advised to take muscle relaxers, apply heat 20 minutes on 20 minutes off several times a day, alternate between Tylenol and ibuprofen for pain control. After performing a Medical Screening Examination, I estimate there is LOW risk for RUPTURED ESOPHAGUS, PNEUMOTHORAX, PULMONARY EMBOLISM, ACUTE CORONARY SYNDROME, OR THORACIC AORTIC DISSECTION, thus I consider the discharge disposition reasonable. I have reevaluated this patient multiple times and no significant life threatening changes are noted. The patient and I have discussed the diagnosis and risks, and we agree with discharging home with close follow-up. We also discussed returning to the Emergency Department immed iately if new or worsening symptoms occur. We have discussed the symptoms which are most concerning (e.g., bloody sputum, worsening pain or shortness of breath) that necessitate immediate return. 08/24/20 17:09 - Vital Signs Vital signs: Temp Pulse Resp BP Pulse Ox 98.2 F 71 16 103/59 L 100 08/24/20 07:55 08/24/20 15:34 08/24/20 15:34 08/24/20 15:34 08/24/20 15:34 - Laboratory Result Diagrams: 08/24/20 08:30 08/24/20 08:30 Laboratory results interpreted by me: 08/24/20 08/24/20 08:30 08:30 Hgb 11.8 L MCV 79 L MCH 25.5 L RDW 15.9 H Lymph % (Auto) 47.2 H Creatine Kinase 146 H - EKG Interpretation by Oh EKG shows normal: Sinus rhythm Rate: Normal Rhythm: NSR Additional EKG results interpreted by ar: 08/24/20 14:40 Heart rate is 70. P axis 44, QRS axis 70, T [place] V. Interpreted by ER supervising physician. No ST segment elevation. No STEMI Discharge - Discharge Clinical Impression: Chest wall pain, Muscle pain, Epigastric abdominal pain Condition: Stable Disposition: HOME, SELF-CARE Instructions: Abdominal Pain ([facility]), Anti-Inflammatory Medication ([facility]), Chest Wall Pain ([facility]), Prilosec (Acid Pump Inhibitor) ([facility]) Additional Instructions: All of your labs today were normal. Prescriptions: Omeprazole 20 mg PO BID #40 capsule. Methocarbamol [Robaxin 500 mg Tablet] 500 mg PO QID PRN #15 tablet PRN Reason: Forms: Return to Work Referrals: REYNA GUARDADO MD [ACTIVE STAFF] - Follow up as needed DEB SILVER MD [COMMUNITY BASED STAFF] - Follow up as needed KULWINDER MARIO MD [ACTIVE STAFF] - Follow up as needed
[2020-08-24 08:41] LABS: ABSOLUTE EOSINOPHILS # (AUTO) 0.1 10^3/uL (0.0-0.6); ABSOLUTE LYMPHOCYTES (AUTO) 2.3 10^3/uL (0.5-4.7); ABSOLUTE MONOCYTES (AUTO) 0.4 10^3/uL (0.1-1.4); BASOPHILS % (AUTO) 0.8 % (0-2); EOSINOPHILS % (AUTO) 2.5 % (0-6); HEMATOCRIT 36.4 % (36.0-47.0); HEMOGLOBIN 11.8 g/dL (12.0-15.5); LYMPHOCYTES % (AUTO) 47.2 % (13-45); MEAN CORPUSCULAR HEMOGLOBIN 25.5 pg (27.0-33.4); MEAN CORPUSCULAR HGB CONC 32.5 g/dL (32.0-36.0); MEAN CORPUSCULAR VOLUME 79 fl (80-97); MONOCYTES % (AUTO) 7.5 % (3-13); PLATELET COUNT 296 10^3/uL (150-450); RED BLOOD COUNT 4.64 10^6/uL (3.72-5.28); RED CELL DISTRIBUTION WIDTH 15.9 % (11.5-14.0); TOTAL CELLS COUNTED % (AUTO) 100 %; WHITE BLOOD COUNT 4.8 10^3/uL (4.0-10.5)
[2020-08-24] MEDS ORDERED: MAG HYDROX/AL HYDROX/SIMETH SUSP 30 ML UDCUP PO ONE (08:54)
[2020-08-24] MEDS ORDERED: LIDOCAINE 2% VISCOUS SOLN 15 ML UDCUP PO ONE (08:54)
[2020-08-24] MEDS ORDERED: METOCLOPRAMIDE HCL ORAL SOLN 10 MG/10 ML UDCUP PO ONE (08:54)
[2020-08-24 08:55] LABS: APPEARANCE,URINE CLEAR; BILIRUBIN,URINE NEGATIVE (NEGATIVE); COLOR,URINE YELLOW; GLUCOSE, URINE NEGATIVE (NEGATIVE); KETONES,URINE NEGATIVE (NEGATIVE); LEUKOCYTE ESTERASE,URINE NEGATIVE (NEGATIVE); NITRITE,URINE NEGATIVE (NEGATIVE); PROTEIN,URINE NEGATIVE (NEGATIVE); URINE SPECIFIC GRAVITY 1.024; UROBILINOGEN,URINE NEGATIVE mg/dL (<2.0)
[2020-08-24 09:06] LABS: ALBUMIN 4.5 g/dL (3.5-5.0); ALKALINE PHOSPHATASE 45 U/L (38-126); ANION GAP 8 (5-19); ASPARTATE AMINO TRANSFERASE 20 U/L (14-36); BILIRUBIN,DIRECT 0.1 mg/dL (0.0-0.4); BILIRUBIN,TOTAL 0.4 mg/dL (0.2-1.3); BLOOD UREA NITROGEN 13 mg/dL (7-20); CALCIUM 9.6 mg/dL (8.4-10.2); CARBON DIOXIDE 23 mmol/L (22-30); CHLORIDE 106 mmol/L (98-107); GLUCOSE 105 mg/dL (75-110); POTASSIUM 4.1 mmol/L (3.6-5.0); TOTAL PROTEIN 7.4 g/dL (6.3-8.2)
--- NOTE | 2020-08-24 09:10 | EKG REPORT ---
SEVERITY:- NORMAL ECG - SINUS RHYTHM : Confirmed by: Bishop Gonzalez MD 24-Aug-2020 09:09:59
[2020-08-24 09:13] LABS: CREATINE KINASE 146 U/L (30-135)
[2020-08-24 09:27] LABS: CREATINE KINASE MB 0.74 ng/mL (<4.55)
[2020-08-24 09:28] LABS: TROPONIN I < 0.012 ng/mL
--- NOTE | 2020-08-24 10:03 | RADIOLOGY REPORT (SQ) ---
EXAM DESCRIPTION: CHEST 2 VIEWS IMAGES COMPLETED DATE/TIME: 08/24/2020 9:48 am REASON FOR STUDY: chest pain COMPARISON: 09/13/2019 TECHNIQUE: Frontal and lateral radiographic views of the chest acquired. NUMBER OF VIEWS: Two view. LIMITATIONS: None. FINDINGS: LUNGS AND PLEURA: No opacities, masses or pneumothorax. No pleural effusion. MEDIASTINUM AND HILAR STRUCTURES: No masses or contour abnormalities. HEART AND VASCULAR STRUCTURES: Heart normal size. No evidence for failure. BONES: No acute findings. HARDWARE: None in the chest. OTHER: No other significant finding. IMPRESSION: NO SIGNIFICANT RADIOGRAPHIC FINDING IN THE CHEST. TECHNICAL DOCUMENTATION: JOB ID: [id number] 2010 [employer]- All Rights Reserved Reading location - IP/workstation name: [email or web address]
--- NOTE | 2020-08-24 11:02 | RADIOLOGY REPORT (SQ) ---
EXAM DESCRIPTION: CT ABD/PELVIS WITH IV ORAL IMAGES COMPLETED DATE/TIME: 08/24/2020 10:51 am REASON FOR STUDY: RUQ, RLQ abd pain x 2 days COMPARISON: None. TECHNIQUE: CT scan of the abdomen and pelvis performed with intravenous and oral contrast using woo ar scanning technique with dynamic intravenous contrast injection. Images reviewed with lung, soft t issue, and bone windows. Reconstructed coronal and sagittal MPR images reviewed. Delayed images for e valuation of the urinary system also acquired. All images stored on PACS. All CT scanners at this facility use dose modulation, iterative reconstruction, and/or weight based d osing when appropriate to reduce radiation dose to as low as reasonably achievable (ALARA). [facility]: Dose Right [facility]: CareDose [facility]: Dose Right [facility]: Teradose 4D [facility]: Innometrics CONTRAST TYPE AND DOSE: contrast/concentration: Isovue 350.00 mmol/ml; Total Contrast Delivered: 80. 0 ml; Total Saline Delivered: 68.0 ml RENAL FUNCTION: None required. The patient is less than 50 years old. RADIATION DOSE: CT Rad equipment meets quality standard of care and radiation dose reduction techniq ues were employed. CTDIvol: 5.2 - 6.7 mGy. DLP: 587 mGy-cm.. LIMITATIONS: Motion. FINDINGS: LOWER CHEST: No significant findings. No nodules or infiltrates. LIVER: Normal size. No masses. No dilated ducts. SPLEEN: Normal size. No focal lesions. PANCREAS: No masses. No significant calcifications. No adjacent inflammation or peripancreatic fluid collections. Pancreatic duct not dilated. GALLBLADDER: No identified stones by CT criteria. No inflammatory changes to suggest cholecystitis. ADRENAL GLANDS: No significant masses or asymmetry. RIGHT KIDNEY AND URETER: No solid masses. No significant calcification. No hydronephrosis or hydroure ter. LEFT KIDNEY AND URETER: No solid masses. No significant calcification. No hydronephrosis or hydrouret er. AORTA AND VESSELS: No aneurysm. No dissection. Renal arteries, SMA, celiac without stenosis. RETROPERITONEUM: No retroperitoneal adenopathy, hemorrhage or masses. BOWEL AND PERITONEAL CAVITY: No obstruction. No visualized masses. No free fluid. No inflammatory ch anges or thickening of bowel wall. APPENDIX: Normal. PELVIS: No significant masses. Normal bladder. No free fluid. ABDOMINAL WALL: No masses. No hernias. BONES: No significant or acute findings. OTHER: No other significant finding. IMPRESSION: NO SIGNIFICANT OR ACUTE FINDINGS IN THE ABDOMEN OR PELVIS. TECHNICAL DOCUMENTATION: JOB ID: [id number] Quality ID # [id number]: Final reports with documentation of one or more dose reduction techniques (e.g., Au tomated exposure control, adjustment of the mA and/or kV according to patient size, use of iterative reconstruction technique) 2010 [employer]- All Rights Reserved Reading location - IP/workstation name: [email or web address]
[2020-08-24 15:35] VITALS: BP 103/59
== END 2020-08-24 16:24 | disposition home or self-care (01) ==
LOC: ER 07:50
DX: R07.89 Other chest pain (principal); R10.13 Epigastric pain; M79.602 Pain in left arm; R19.4 Change in bowel habit; M79.10 Myalgia, unspecified site; F17.210 Nicotine dependence, cigarettes, uncomplicated
CPT/HCPCS: 93005; 99285; 36415; 82553; 82550; 84702; 83690; 85025; 81025; 80053; 81001; 84484; 71046; 74177; 93010; J3490